=== PATIENT | female | born 1960 ===

== ENCOUNTER 2016-11-02 12:23 | Emergency (ER) | payer SELFPAY ==
--- NOTE | 2016-11-04 19:25 | ER ---
ADMIT: 11/02/2016 RM/LOC: ER [facility] MR#: [id number] [place], [place] [id number] SOFÍA MONTOYA [address] [place] [address] Emergency Room Report SEX: F AGE: 56 : 1960 DATE: 11/02/2016 ADDENDUM: CHIEF COMPLAINT: Anxiety. HISTORY OF PRESENT ILLNESS: This is a 56-year-old female, who has a lot going on in her life. She is trying to become a citizen, she is also very worried about her children and one of her grandchild has heart problem. She has just been stewing over it for the last couple of weeks. PAST MEDICAL HISTORY: Anxiety, hypercholesteremia, and left knee surgery. MEDICATIONS: Atorvastatin. ALLERGIES: NO KNOWN ALLERGIES. SOCIAL HISTORY: Denies any tobacco, drug, or alcohol use. FAMILY HISTORY: Noncontributory. REVIEW OF SYSTEMS: CONSTITUTIONAL: Denies any fevers, chills, or sweats. CARDIOVASCULAR and RESPIRATORY: Denies any chest pain or shortness breath. GI and : Denies any nausea, vomiting, or dysuria. All systems otherwise negative. PHYSICAL EXAMINATION: VITAL SIGNS: Blood pressure is 156/82, pulse is 63, respirations 22, temperature 98.2 tympanic, saturation of oxygen is 100% on room air. GENERAL APPEARANCE: She is very tearful and anxious when I go into the room, but she is alert and appropriate. HEENT: Pharynx is moist. No tonsillar swelling or exudate. TMs nonerythemic bilateral. NECK: Supple. HEART: Regular rate and rhythm. LUNGS: CTA bilaterally. No wheezes, rales, or rhonchi. ABDOMEN: Soft, nontender. No distention. SKIN: Normal color, warm, and dry. No rashes noted. ADMIT: 11/02/2016 RM/LOC: ER [facility] MR#: [id number] [place], [place] [id number] SOFÍA MONTOYA [address] [place] [address] Emergency Room Report SEX: F AGE: 56 : 1960 NEURO and PSYCH: She is alert and oriented x3. Mood and affect actually depressed at this time since she is crying. DISPOSITION: I did give her Valium 5 mg p.o. here in the emergency room, she feels significantly better. We will send her home with a script of Xanax, I dispensed 20 tablets of 0.25 mg, told her only take it if she has similar symptoms today where she cannot control her panic attack. in the room and he understands and will help her through this. CLINICAL IMPRESSION: Anxiety/panic attack. DISPOSITION: Stable at discharge and will follow up as needed. GRETA Del Toro / Denzel Qiu MD / tifafnie JOB #: [id number] CC: Denzel Qiu MD, Attending Physician Roger Dueñas MD, Family Physician
== END 2016-11-02 14:00 | disposition home or self-care (01) ==
LOC: ER 12:23
DX: F41.9 Anxiety disorder, unspecified (principal); E78.00 Pure hypercholesterolemia, unspecified